=== PATIENT | female | born 1990 | race Caucasian/White ===

== ENCOUNTER 2021-05-26 13:25 | Outpatient (REF) | payer MEDICAID, SELFPAY ==
[2021-05-28 04:51] LABS: CT PCR NOT DETECTED (Not Detect.); NG PCR NOT DETECTED (Not Detect.)
[2021-05-28 09:40] LABS: BV Int Neg Control Negative (Negative); BV Int Pos Control Positive (Positive)
[2021-06-02 18:46] LABS: HPV mRNA E6/E7 rflx Not Detected (Not Detected)
== END 2021-05-26 13:26 | disposition home or self-care (01) ==
LOC: HO.LAB 13:25
PROVIDERS: PCP Internal Medicine; Visit Provider Advanced Practice Midwife
DX: Z01.419 Encounter for gynecological examination (general) (routine) without abnormal findings (principal); Z11.51 Encounter for screening for human papillomavirus (HPV); Z20.2 Contact with and (suspected) exposure to infections with a predominantly sexual mode of transmission; Z87.42 Personal history of other diseases of the female genital tract
CPT/HCPCS: 87480; 87491; 87510; 87591; 87624; 87660; 88142

== ENCOUNTER 2021-10-28 09:19 | Outpatient (REF) | payer MEDICAID, SELFPAY | END 2021-10-28 09:20 | disposition home or self-care (01) | LOC: HO.LAB 09:19 | PROVIDERS: PCP Internal Medicine; Visit Provider Advanced Practice Midwife | DX: R87.615 Unsatisfactory cytologic smear of cervix (principal); Z87.42 Personal history of other diseases of the female genital tract | CPT/HCPCS: 88142; 99212 ==

== ENCOUNTER 2022-12-15 11:10 | Outpatient (REF) | payer MEDICAID, SELFPAY ==
[2022-12-15 14:27] LABS: MANUAL DIFF FLAG NO
[2022-12-15 14:41] LABS: Basophils Percent Auto 0.6 % (0-2); Eosinophils Absolute Auto 0.2 X10*3/uL (0.0-0.4); Eosinophils Percent Auto 2.2 % (0-4); Hematocrit 42.1 % (37.0-47.0); Hemoglobin 13.4 g/dl (12.0-16.0); Imm Gran Abs Auto 0.02 X10*3/uL (0.00-0.03); Imm Gran Pct Auto 0.3 % (0.0-0.4); Lymphocytes Percent Auto 27.5 % (20-40); Mean Corpuscular HGB Conc 31.8 g/dl (31.0-35.0); Mean Corpuscular Hemoglobin 29.2 pg (27.0-33.0); Mean Corpuscular Volume 91.7 fL (80.0-98.0); Mean Platelet Volume 11.4 fL (9.4-12.3); Monocytes Absolute Auto 0.5 X10*3/uL (0.1-1.2); Monocytes Percent Auto 6.8 % (2-11); Neutrophils Absolute Auto 4.5 x10*3/uL (2.0-8.3); Neutrophils Percent Auto 62.6 % (45-73); Platelet Count 369 X10*3/uL (160-400); Red Blood Count 4.59 X10*6/uL (4.20-5.50); Red Cell Distribution Width 11.9 % (11.0-16.0); White Blood Count 7.2 X10*3/uL (4.8-10.8)
[2022-12-15 15:29] LABS: Estimated Average Glucose 91 mg/dL; Hemoglobin A1c % 4.8 %
[2022-12-16 02:13] LABS: TSH reflex Free T4 1.89 uIU/mL (0.32-4.0)
[2022-12-16 02:15] LABS: Anion Gap 12 (12-20)
[2022-12-16 02:18] LABS: Blood Urea Nitrogen 7 mg/dL (9-16); Calcium 9.4 mg/dL (8.4-10.2); Carbon Dioxide 27 mmol/L (22-29); Chloride 105 mmol/L (96-108); Estimated Glomerular Filt Rate > 60; Glucose Random 86 mg/dL (60-115); Potassium 3.8 mmol/L (3.3-5.1); Sodium 140 mmol/L (135-145)
== END 2022-12-15 11:11 | disposition home or self-care (01) ==
LOC: HO.CHCLDS 11:10
PROVIDERS: Visit Provider General Practice
DX: F41.9 Anxiety disorder, unspecified (principal); G47.00 Insomnia, unspecified
CPT/HCPCS: 36415; 80048; 83036; 84443; 85025

== ENCOUNTER 2024-02-06 15:35 | Outpatient (REF) | payer MEDICAID, SELFPAY ==
[2024-02-06 18:30] LABS: Influenza A PCR NEGATIVE (Negative); Influenza B PCR NEGATIVE (Negative); Resp Syncy Virus RNA Qual PCR NEGATIVE (Negative); SARS COV2 PCR INHOUSE NEGATIVE (Negative)
== END 2024-02-06 15:36 | disposition home or self-care (01) ==
LOC: HO.CHCLNP 15:35
PROVIDERS: Visit Provider Family Medicine
DX: J06.9 Acute upper respiratory infection, unspecified (principal)
CPT/HCPCS: 0241U

== ENCOUNTER 2024-03-06 14:26 | Outpatient (REF) | payer MEDICAID, SELFPAY ==
[2024-03-06 17:57] LABS: MANUAL DIFF FLAG NO
[2024-03-06 18:16] LABS: Basophils Absolute Auto 0.1 X10*3/uL (0.0-0.2); Basophils Percent Auto 0.7 % (0-2); Eosinophils Absolute Auto 0.3 X10*3/uL (0.0-0.4); Eosinophils Percent Auto 2.5 % (0-4); Hemoglobin 12.4 g/dl (12.0-16.0); Imm Gran Abs Auto 0.04 X10*3/uL (0.00-0.03); Imm Gran Pct Auto 0.4 % (0.0-0.4); Lymphocytes Absolute Auto 2.9 X10*3/uL (1.2-4.9); Lymphocytes Percent Auto 28.6 % (20-40); Mean Corpuscular HGB Conc 33.5 g/dl (31.0-35.0); Mean Corpuscular Volume 89.6 fL (80.0-98.0); Mean Platelet Volume 11.2 fL (9.4-12.3); Monocytes Absolute Auto 0.6 X10*3/uL (0.1-1.2); Monocytes Percent Auto 5.7 % (2-11); Neutrophils Absolute Auto 6.3 x10*3/uL (2.0-8.3); Neutrophils Percent Auto 62.1 % (45-73); Platelet Count 357 X10*3/uL (160-400); Red Blood Count 4.13 X10*6/uL (4.20-5.50); White Blood Count 10.2 X10*3/uL (4.8-10.8)
[2024-03-06 18:33] LABS: Iron 65 mcg/dL (30-160); Percent Iron Saturation 23 % (15-50); Total Iron Binding Capacity 287 mcg/dL (228-428); Unsaturated Iron Binding 222 ug/dL
[2024-03-06 18:40] LABS: TSH reflex Free T4 1.67 uIU/mL (0.32-4.0)
== END 2024-03-06 14:27 | disposition home or self-care (01) ==
LOC: HO.CHCLDS 14:26
PROVIDERS: Visit Provider Internal Medicine
DX: R53.83 Other fatigue (principal)
CPT/HCPCS: 36415; 83540; 84443; 85025

== ENCOUNTER 2024-06-20 08:37 | Outpatient (AMB) | payer MEDICAID, SELFPAY ==
[2024-06-20 08:40] VITALS: BP 126/74; PULSE 94; O2SAT 98; BMI 32.1
--- NOTE | 2024-06-20 08:40 | A.OFFVIS_ITS ---
Vital Signs 06/20/24 08:40 Height 4 ft 11 in Weight 159 lb 2.78 oz BMI 32.1 BP 126/74 Blood Pressure Location Rt radial Position Sitting Pulse 94 Pulse Source Pulse Oximeter Pulse Oximetry (%) 98 Oxygen Delivery Method Room Air Intake Visit Reasons: Rectal Bleeding Intake Note: NEW PATIENT Reason; Rectal bleeding. Hx of hemorrhoids. Prior hx of colo/egd? N Concerns/Questions? Pt reports having rectal discomfort, pt has no prior hx of hemorrhoids but believes that it could possibly be related. Pt denies any other concerns at this time, BMs normal. Allergies aspirin [ASPIRIN] Allergy (Unknown, Verified 06/20/24 08:40) SWELLING, swells up HPI HPI Rectal Bleeding: Details: 34 years old female with no significant past medical history is here today for initial consultation. Patient was sent by her PCP for evaluating her ongoing symptoms. Patient reports rectal pain. Episode of rectal bleed back in February. Normal H&H. Patient reports occasional pain with bowel movements. Patient states that she feels like she has something around her rectum that is making her feel uncomfortable. Very sensitive area. Patient was using stool softeners, however she was having no results. Now taking senna every other day and she is moving her bowels. Bowels soft, brown. Patient reports that she is not constipated. Trying to eat fiber. Patient reports maternal aunt diagnosed with colorectal cancer in her 60s. Patient denies melena, unintentional weight loss or ribbon like stools. Patient reports occasional left lower quadrant pain specially when she is constipated. Pain better after bowel movement. [facility] Medical History Single delivery by Gall bladder stones Surgical History Hx of cholecystectomy (~2009) History of bilateral tubal ligation Family History Father Heart disease Diabetes Mother Diabetes Social History Alcohol intake: never Patient Tobacco Use Status: Never used Tobacco Gender identity: Female Female Reproductive History Menstrual Age of Menarche: 11 Review of Systems Const Denies weight gain and Denies weight loss ENT Reports no additional complaints, Denies dysphagia and Denies odynophagia Card Reports no additional complaints Resp Reports no additional complaints GI Denies abdominal pain, Denies belching, Denies melena, Denies bloating, Denies change in bowel habits, Reports constipation (Occasional), Denies dysphagia, Denies excessive flatus, Denies dyspepsia, Denies heartburn, Denies diarrhea, Denies loose stools, Denies nausea, Denies odynophagia, Denies vomiting and Reports other (Rectal pain with bowel movements) Reports no additional complaints Musc Reports no additional complaints Neuro Reports no additional complaints Psych Reports no additional complaints Endo Reports no additional complaints Physical Exam Vital Signs: Last Vital Signs Pulse 94 06/20/24 08:40 BP 126/74 06/20/24 08:40 Pulse Ox 98 06/20/24 08:40 Oxygen Delivery Method Room Air 06/20/24 08:40 BMI result Body Mass Index 32.1 Const General: healthy appearing and no acute distress Nutritional Appearance: obese Orientation/consciousness: patient oriented x3 Resp Effort & Inspection: normal respiratory effort, able to speak in complete sentences, no tracheal deviation and symmetric chest movement Auscultation: clear to auscultation bilaterally Cardio Rate: regular rate GI Inspection: Yes normal to inspection, No distended and Yes obesity Palpation (GI): Soft to palpation, not firm, nontender and No hepatosplenomegaly present Auscultation: normal bowel sounds Rectal Exam - Female: External hemorrhoid(s) present and other (Possible internal hemorrhoid felt) General: Yes no CVA tenderness Back/Spine/Pelvis Back: no CVA tenderness Skin General skin exam: elasticity normal, turgor normal and dry skin Neuro General: patient oriented x3 Psych Appearance: grossly normal Mental Status: mental status grossly normal Assessment & Plan Assessment & Plan (1) Rectal pain: Code(s): K62.89 - Other specified diseases of anus and rectum (2) Rectal bleed: Code(s): K62.5 - Hemorrhage of anus and rectum (3) LLQ abdominal pain: Code(s): R10.32 - Left lower quadrant pain (4) External hemorrhoid: Code(s): K64.4 - Residual hemorrhoidal skin tags Plan Patient will take senna, mild constipation reported. Increase fluid intake and activity to promote better bowel motility. On exam external hemorrhoids noted without bleeding. Script for Proctosol send. Sitz baths with Epsom salts recommended. Follow-up in 2 months to discuss going for colonoscopy. Message sent to surgical schedulers to book procedure for her. Patient is agreeable to this plan and verbalizes understanding of instructions. She was given the opportunity to ask questions and all questions answered. Thank you for allowing me to participate in her care Medications: New hydrocortisone 2.5% (Proctosol HC) 1 appl MA BID-QID PRN 30 grams 2RF hemorrhoids K64.9 - Unspecified hemorrhoids sennosides (Natural Senna Laxative) 8.6 mg PO BEDTIME 90 tabs 3RF constipation K59.00 - Constipation, unspecified Coding Level of Care Code New Pt Level 3 (05152) Diagnoses Rectal pain K62.89 Rectal bleed K62.5 LLQ abdominal pain R10.32 External hemorrhoid K64.4 Time Spent (min) 40 Comment 30 minutes spent with patient and additional 10 minutes spent reviewing her records
--- OUTSIDE RECORDS SUMMARY | 2024-06-20 08:54 | XMS_ITS | Encounter Summary ---
Author Organization [employer] Address [address] [facility] 7t [place] [address] Care Team Providers Care Technology Trainer Name Role Phone Yuri Colon MD Primary Care Prov ider Encounter Details Date Type Department Care Team ([facility] st Contact Info) Description 06/01/2024 Telephone [facility] MED & PEDS [address] [place], [place] [id number] Yuri Colon MD [address] [place] [address] Social History Tobacco Use Types Packs/Day Years Used Date Smoking Tobacco: Never Smokeless Tobacco: Never Alcohol Use Standard Drinks/Week Comments Never 0 (1 standard drink = 0.6 oz pur e alcohol) Depression Answer Date Recorded Patient Health Questionnaire-9 Score 0 08/05/2023 Patient Health Questionnaire-9 Score 0 08/05/2023 Last PHQ-9: Questionnaire Data Not on file 0 08/05/2023 Housing Stability Answer Date Recorded What is your housing situation today? I have silvio gonzalez 11/24/[address] you li ve. Do you have problems with any of the following? None of the above 11/24/2023 Food Insecurity Answer Date Recorded Within the past 12 months, y ou worried that your food would run out before you got money to buy more: Never True 11/24/2023 Within the past 12 months,th e food you bought just didn't last and you didn't have enough money to get more: Never True Transportation Answer Date Recorded In the past 12 months, has l ack of transportation kept you from medical appts, meetings, work or from getting things needed for daily living? No 11/24/2023 Utilities Answer Date Recorded In the past 12 months, has t he electric, gas, oil or water company threatened to shut off services in your home? No 11/24/2023 Depression Answer Date Recorded Patient Health Questionnaire-2 Score 3 08/05/2023 Internet Access Answer Date Recorded Internet Access Q1 Yes 01/30/2024 Internet Access Q2 Not on file 01/30/2024 Comments Unknown Sex and Gender Information Value Date Recorded Sex Assigned at Female 03/29/2022 10:14 AM EDT Legal Sex Female 10:14 AM EDT Gender Identity Female 03/29/2022 10:14 AM EDT Sexual Orientation Straight 03/29/2022 10 :14 AM EDT documented as of this encounter Miscellaneous Notes * Telephone Encounter - Belen Perez MA - 06/01/2024 2:43 PM EST Called pt to schedule [place] appt with Dr. Powell in June. Pt didn't answer, lvm to call officeback. documented in this encounter Plan of Treatment Upcoming Encounters Date Type Department Care Team (Late st Contact Info) Description 07/05/2024 1:00 PM EST Office Visit [facility] MED & PEDS [address] [place] [address] Yuri Colon MD [address] [place] [address] documented as of this encounter Visit Diagnoses Not on filedocumented in this encounter Additional Health Concerns Assessment Noted Time PHQ-9 Depression Total Score: 0 08/05/19 24 11:18 AM EST documented as of this encounter Care Teams Technology Trainer Relationship Specialty Start Date End Date Yuri Colon MD [address] [place] [address] PCP - General Internal Medicine 03/05/19 documented as of this encounter
--- OUTSIDE RECORDS SUMMARY | 2024-06-20 08:54 | XMS_ITS | Clinical Summary ---
Author Organization [facility] Address [address] [place] [address] Care Team Providers Care Fitter'S Assistant Name Role Phone Unavailable Primary Care Provider Unavailabl e Allergies Active Allergy Reactions Criticality Noted Date Comments Aspirin Hives 07/01/2020 Immunizations Name Administration Dates Next Due Covid-19 (Pfizer) Dilution Required 08/06/2020,0 07/01/2020 Social History Tobacco Use Types Packs/Day Years Used Date Smoking Tobacco: Never Assessed Sex and Gender Information Value Date Recorded Sex Assigned at Female 07/01/2020 1:21 PM EST Gender Identity Not on file Sexual Orientation Not on file Job Start Date Occupation Industry Not on file Not on file Not on file Plan of Treatment Health Maintenance Due Date Last Done Comments Hepatitis B Vaccines (1 of 3 - 3-dose series) 1989 Hepatitis C Screening 1989 Depression Screening 2001 Preventative Health Evaluation 2007 DTap / Tdap / Td (1 - Tdap) 2008 Cervical Cancer Screening (Pap Smear) 2010 COVID-19 Vaccine (2023-2 5 season) 2024 08/06/2020, 07/01/2020 Influenza Vaccine (#1) 2024 Pneumococcal Vaccine Aged Out No long er eligible based on patient's age to complete this topic RSV Ped < 20 months Aged Out No longe r eligible based on patient's age to complete this topic Suzi Perry Personal/Family Self 1990 ([place]) [address] [place] [address] [place] [phone]
--- OUTSIDE RECORDS SUMMARY | 2024-06-20 08:54 | XMS_ITS | Clinical Summary ---
Author Organization [employer] Address [address] [place] [address] 7[address] [place] [address] Care Team Providers Care Validation Architect Name Role Phone Yuri Colon MD Primary Care Prov ider Allergies Active Allergy Reactions Criticality Noted Date Comments Aspirin Hives 05/26/2010 Medications QUEtiapine (SEROquel) 50 MG tablet TAKE 1 TABLET BY MOUTH EVERYDAY AT BEDTIME 90 tablet 1 02/28/2024 Active omeprazole (PriLOSEC) [address] capsule Take 1 capsule (20 mg) by mouth before breakfast. 90 capsule 3 03/01/2024 Active hydrOXYzine HCl (Atarax) 25 MG tablet Take 1 tablet (25 mg) by mouth if needed in the morning, at noon, and at bedtime for anxiety. 90 tablet 3 03/27/2024 07/25/19 25 Active Active Problems Problem Noted Date Diagnosed Date Upper respiratory tract infection 02/06/2024 Assessment & Plan (02/06/2024 11:39 AM EDT): Negative for Covid, Flu, and RSV. Prescribing Pseudoephedrine Er for Sx. Relevant Medications Pseudoephedrine ER (Sudafed Sinus Congestion 12 HR) 120 MG 12 hr tablet Dysuria 02/06/2024 Assessment & Plan (02/07/2024 10:18 AM EDT): Urinalysis showed hematuria and UTI. Prescribing Macrobid and Pyridium for Sx. Relevant Medications Nitrofurantoin, Macrocrystal-monohydrate (Macrobid) 100 mg capsule Phenazopyridine (Pyridium) 200 mg tablet Recommend patient to do UA order by PCP when she is not symptomatic to assess if she had microscopic hematuria Bilateral impacted cerumen 02/06/2024 Assessment & Plan (02/06/2024 11:40 AM EDT): Prescribing Debrox for Sx. Relevant Medication Carbamide Peroxide (Debrox) 6.5% otic solution Other fatigue 09/15/2023 Assessment & Plan (09/15/2023 12:25 PM EDT): Will order cbc and tsh, Anxiety and depression 01/13/2023 Assessment & Plan (03/27/2024 9:08 AM EDT): On seroquel with good results, taking hydroxyzine as needed, no changes will be made Assessment & Plan (03/01/2024 12:13 PM EDT): Will decrease quetiapine, call back if symptoms worsening Assessment & Plan (11/25/2023 3:37 PM EDT): Will increase quetiapine, no suicidal/homicidal ideas, follow up in 6 weeks Phone number for therapist was provided Assessment & Plan (09/15/2023 12:24 PM EDT): Symptoms improved, continue hydroxyzine as needed, no suicidal/homicidal ideas Assessment & Plan (08/17/2023 9:41 AM EDT): No sucidal/homicidal ideas, will refer to , and will provide hydroxyzine as needed, follow up in [address] [facility] Assessment & Plan (06/03/2023 10:01 AM EST): Symptoms improved and controlled with seroquel, will leave current therapy, no suicidal/homicidal ideas Assessment & Plan (01/13/2023 3:11 PM EDT): Patient was started on lexapro, refers her symptoms have improved but expirenecing episodes of mood swings, with anger, she probably has bipolar disorder, she refers she used to take abilify. Will discontinue lexapro and will start on seroquel Asymptomatic microscopic hematuria 01/13/2023 Assessment & Plan (03/27/2024 9:07 AM EDT): U/a not done, told to perform it 2 weeks after menstrual period, she has remained asymptomatic Assessment & Plan (03/01/2024 12:14 PM EDT): New labs ordered to reevaluate hematuria Assessment & Plan (11/25/2023 3:38 PM EDT): New u/a was ordered, will follow up results Assessment & Plan (06/03/2023 10:02 AM EST): U/a not done, she will get it this week for follow up Assessment & Plan (01/13/2023 3:32 PM EDT): Will order a new u/a for further evaluation Migraine without aura and wi thout status migrainosus, not intractable 06/29/2022 Assessment & Plan (06/29/2022 3:24 PM EST): Patient complains of a throbing headache for the past 4-5 days, no blurry vision/upper/lower extremity weakness. Will provide sumatriptan/naproxen, discussed lifestyle changes including adequate sleep and diet. Call back if not improving Encounters Date Type Department Care Team Description 06/01/2024 Telephone [facility] MED & PEDS [address] [place] [address] Yuri Colon MD 03/27/2024 8:45 AM EDT Telemedicine [facility] MED & PEDS [address] [place] [address] Yuri Colon MD Asymptomatic microscopic hematuria (Primary Dx); Anxiety and depression 03/27/2024 Travel from Last 3 Months Immunizations Name Administration Dates Next Due HPV, Quadrivalent 01/31/2007,12/02/2006 Influenza injectable quadriv alent IIV4 with preservative 03/05/2019 Social History Tobacco Use Types Packs/Day Years Used Date Smoking Tobacco: Never Smokeless Tobacco: Never Tobacco Cessation:Counseling Given: Not Answered Alcohol Use Standard Drinks/Week Comments Never 0 [...] Orientation Straight 03/29/2022 10 :14 AM EDT Last Filed Vital Signs Vital Sign Reading Time Taken Comments Blood Pressure 120/71 03/06/2024 1:22 PM EDT Pulse 74 03/06/2024 1:22 PM EDT Temperature 36.7 ??C (98.1 ??F) 03/06/2024 1:22 PM ED T Respiratory Rate 16 03/06/2024 1:22 PM EDT Oxygen Saturation 99% 03/06/2024 1:22 PM EDT Inhaled Oxygen Concentration - - Weight 68.6 kg (151 lb 3.2 oz) 03/06/2024 1:22 P M EDT Height 152.4 cm (5') 03/06/2024 1:22 PM EDT Body Mass Index 29.53 03/06/2024 1:22 PM EDT Plan of Treatment Upcoming Encounters Date Type Department Care Team (Late st Contact Info) Description 07/05/2024 1:00 PM EST Office Visit [facility] MED & PEDS [address] [place] [address] Yuri Colon MD [address] [place] [address] Health Maintenance Due Date Last Done Comments HIV Screening 1989 Alcohol/Substance Use Screening 2001 Family Planning (PISQ) 2004 Hepatitis C Screening 2007 HPV Vaccines (3 - 3-dose series) 06/04/2007 01/31/2007, 12/02/2006 DTaP/Tdap/Td Vaccines (1 - Tdap) 2008 Hepatitis B Vaccines (1 of 3 - 19+ 3-dose series) 2008 Pap Smear 2010 COVID-19 Vaccine (3 - 2023-2 5 season) 2024 08/06/2020, 07/01/2020 Influenza Vaccine (#1) 2024 03/05/2019 Depression Screening 08/04/2024 08/05/2023, 08/05/2023 SDOH Screening 11/23/2024 11/24/2023 Tobacco Screening 03/06/2025 03/06/2024 Cervical Cancer Screening 05/26/2026 HPV/Cotest 05/26/2026 05/26/2021, 05/26/2021 Zoster Vaccines (1 of 2) 2039 RSV Patients and Patients Aged 60 years or older (1 - 1-dose 75+ series) 2064 HIB Vaccines Aged Out No longer eligi ble based on patient's age to complete this topic Hepatitis A Vaccines Aged Out No long er eligible based on patient's age to complete this topic IPV Vaccines Aged Out No longer eligi ble based on patient's age to complete this topic Meningococcal Vaccine Aged Out No christel nabila eligible based on patient's age to complete this topic Pneumococcal Vaccine: Pediatrics (0 to 5 Years) and At-Risk Patients (6 to 64 Years) Aged Out No longer eligible b ased on patient's age to complete this topic RSV under 20 months Aged Out No longe r eligible based on patient's age to complete this topic Rotavirus Vaccines Aged Out No longer eligible based on patient's age to complete this topic Procedures Procedure Name Priority Date/Time Associated Diagnosis Comments ZZZ HISTORICAL HPV E6/E7 RFLX ESCOBAR 16 18/45 Routine 05/26/2021 2:16 PM EST from Last 3 Months or Most Recently Relevant to Health Maintenance Results * HPV E6/E7 RFLX ESCOBAR 16 18/45 (05/26/2021 2:16 PM EST) HPV 16 RNA TNP [facility] HPV 18/45 RNA TNP [facility] HPV E6 E7 ADD TNP [facility] HPV mRNA E6/E7 rflx Not Detected Not Detected [facility] Comment: Methodology: Flap Lining Binder-Mediated Amplification This assay detects E6/E7 viral messenger RNA (mRNA) from 14 high-risk HPV types (16,18,31,33,35,39,45,51,52,56,58,59,66,68). The analytical performance characteristics of this assay have been determined by [employer]. The modifications have not been cleared or approved by the FDA. This assay has been validated pursuant to the CLIA regulations and is used for clinical purposes. For additional information, please refer to http://education.[employer].Epuramat/faq/NTA579w3 (This link if provided for information/ educational purposes only.) THIS TEST WAS PERFORMED AT: [facility] [address] [place] [address],[address] [place], [place] ??[phone] KASSI GONZALES MD 05/26/2021 2:16 PM EST us Charlotte Carias HISTORICAL/NON ORDERABLE LABS Fi nal Result [facility] [address] from Last 3 Months or Most Recently Relevant to Health Maintenance [facility] Care Teams Validation Architect Relationship Specialty Start Date End Date Yuri Colon MD [address] [place] [address] PCP - General Internal Medicine 03/05/19
--- OUTSIDE RECORDS SUMMARY | 2024-06-20 08:54 | XMS_ITS | Encounter Summary ---
Author Organization [employer] Address [address] [facility] [address]t [place] [address] Care Team Providers Care Automotive Service Manager Name Role Phone Yuri Colon MD Primary Care Prov ider Reason for Visit * Reason Comments Med Refill Encounter Details Date Type Department Care Team ([facility] st Contact Info) Description 04/30/[address] [facility] MED & PEDS [address] [place] [address] Yuri Colon MD [address] [place] [address] Social History Tobacco Use Types Packs/Day Years Used Date Smoking Tobacco: Never Smokeless Tobacco: Never Alcohol Use Standard Drinks/Week Comments Never 0 (1 standard drink = 0.6 oz pur e alcohol) Housing Stability Answer Date Recorded What is your housing situation today? I have silvio gonzalez 03/28/[address] you li ve. Do you have problems with any of the following? None of the above 03/28/2023 Food Insecurity Answer Date Recorded Within the past 12 months, y ou worried that your food would run out before you got money to buy more: Never True 03/28/2023 Within the past 12 months,th e food you bought just didn't last and you didn't have enough money to get more: Never True Transportation Answer Date Recorded In the past 12 months, has l ack of transportation kept you from medical appts, meetings, work or from getting things needed for daily living? No 03/28/2023 Utilities Answer Date Recorded In the past 12 months, has t he electric, gas, oil or water [employer] threatened to shut off services in your home? No 03/28/2023 Depression Answer Date Recorded Patient Health Questionnaire-2 Score 0 06/29/2022 Comments Unknown Sex and Gender Information Value Date Recorded Sex Assigned at Female 03/29/2022 10:14 AM EDT Legal Sex Female 10:14 AM EDT Gender Identity Female 03/29/2022 10:14 AM EDT Sexual Orientation Straight 03/29/2022 10 :14 AM EDT documented as of this encounter Plan of Treatment Upcoming Encounters Date Type Department Care Team (Late st Contact Info) Description 07/05/2024 1:00 PM EST Office Visit [facility] MED [facility] PEDS [address] [place] [address] Yuri Colon MD [address] [place] [address] documented as of this encounter Visit Diagnoses Not on filedocumented in this encounter Care Teams Automotive Service Manager Relationship Specialty Start Date End Date Yuri Colon MD [address] [place] [address] PCP - General Internal Medicine 03/05/19 documented as of this encounter
--- OUTSIDE RECORDS SUMMARY | 2024-06-20 08:54 | XMS_ITS | Encounter Summary ---
Author Organization [employer] Address [address] [facility] [address]t [place] [address] Care Team Providers Care Realtime Court Reporter Name Role Phone Yuri Colon MD Primary Care Prov ider Reason for Visit * Reason Onset Date Comments Med Refill 05/02/2023 Encounter Details Date Type Department Care Team (Late st Contact Info) Description 05/02/[address] [facility] MED & PEDS [address] [place] [address] Yuri Colon MD [address] [place] [address] Social History Tobacco Use Types Packs/Day Years [...] Description 07/05/2024 1:00 PM EST Office Visit [facility] MED & PEDS [address] [place] [address] Yuri Colon MD [address] [place] [address] documented as of this encounter Visit Diagnoses Not on filedocumented in this encounter Care Teams Realtime Court Reporter Relationship Specialty Start Date End Date Yuri Colon MD [address] [place] [address] PCP - General Internal Medicine 03/05/19 documented as of this encounter
== END 2024-06-20 11:01 | disposition home or self-care (01) ==
PROVIDERS: PCP Internal Medicine; Visit Provider Nurse Practitioner Family
DX: K62.89 Other specified diseases of anus and rectum (principal); K62.5 Hemorrhage of anus and rectum; R10.32 Left lower quadrant pain; K64.4 Residual hemorrhoidal skin tags
CPT/HCPCS: 99203

== ENCOUNTER → 2024-06-20 08:37 | Outpatient (BNVA) | payer MEDICAID, SELFPAY | PROVIDERS: PCP Internal Medicine; Visit Provider Nurse Practitioner Family | DX: K62.89 Other specified diseases of anus and rectum (principal); K62.5 Hemorrhage of anus and rectum; K64.9 Unspecified hemorrhoids; K64.4 Residual hemorrhoidal skin tags; K59.00 Constipation, unspecified; R10.32 Left lower quadrant pain | CPT/HCPCS: 99212 ==

== ENCOUNTER 2024-08-20 08:15 | Outpatient (AMB) | payer SELFPAY ==
--- NOTE | 2024-08-20 08:31 | A.OFFVIS_ITS ---
Vital Signs 08/20/24 08:35 Height 4 ft 11 in Weight 155 lb BMI 31.3 BP 92/52 L Blood Pressure Location Rt brachial Position Sitting Pulse 80 Pulse Source Pulse Oximeter Pulse Oximetry (%) 99 Oxygen Delivery Method Room Air Intake Visit Reasons: 2 mo rectal pain and discuss colo Intake Note: ESTABLISHED PATIENT for mgmt of constipation, rectal bleeding. Discuss colo Chief Complaint; C/O persistent chronic condition w/o change in presentation since prior visit. Still experiencing hemorrhoids w/ active bleeding and discomfort. Measuring Machine Operator Required: No Accompanied by: Self / Same As Patient Allergies aspirin [ASPIRIN] Allergy (Unknown, Verified 08/20/24 08:34) SWELLING, swells up HPI HPI 2 mo rectal pain and discuss colo: Details: LAST VISIT Rectal pain Rectal bleed LLQ abdominal pain External hemorrhoid Plan Patient will take senna, mild constipation reported. Increase fluid intake and activity to promote better bowel motility. On exam external hemorrhoids noted without bleeding. Script for Proctosol send. Sitz baths with Epsom salts recommended. Follow-up in 2 months to discuss going for colonoscopy. Message sent to surgical schedulers to book procedure for her. Patient is agreeable to this plan and verbalizes understanding of instructions. She was given the opportunity to ask questions and all questions answered. ? Thank you for allowing me to participate in her care Medications New hydrocortisone 2.5% (Proctosol HC) 1 appl TX BID-QID PRN 30 grams 2RF hemorrhoids K64.9 sennosides (Natural Senna Laxative) 8.6 mg PO BEDTIME 90 tabs 3RF constipation K59.00 TODAY'S VISIT Patient is here today for follow-up and to discuss going for colonoscopy. Patient reports that she continues to have occasional irritation her rectum and occasional blood when having a bowel movement. Patient reports worse when she is constipated. Patient is using senna in his moving her bowels better. Patient reports that past we can she had greasy food and end up with severe epigastric pain, nausea and vomiting. Patient reports having diarrhea as well. Patient reports that acid reflux in the epigastric pain postprandially has been an issue for her in the past couple months. PCP started her on omeprazole. Patient was taking as needed, started again today's ago. Patient reports that sometimes no matter what she eats she feels acid reflux, severe burning going all the way up to her throat. [facility] Medical History Single delivery by Gall bladder stones Surgical History Hx of cholecystectomy (~2009) History of bilateral tubal ligation Family History Father Heart disease Diabetes Mother Diabetes Social History Alcohol intake: never Patient Tobacco Use Status: Never used Tobacco Gender identity: Female Female Reproductive History Menstrual Age of Menarche: 11 Review of Systems Const Denies weight gain and Denies weight loss ENT Reports no additional complaints, Denies dysphagia and Denies odynophagia Card Reports no additional complaints Resp Reports no additional complaints GI Reports abdominal pain (Epigastric), Denies belching, Denies melena, Denies bloating, Reports hematochezia (Occasionally), Denies change in bowel habits, Reports constipation (Occasional), Denies dysphagia, Denies excessive flatus, Denies dyspepsia, Reports heartburn, Denies diarrhea, Denies loose stools, Denies nausea, Denies odynophagia, Denies vomiting and Reports other (Rectal pain with bowel movements) Reports no additional complaints Musc Reports no additional complaints Neuro Reports no additional complaints Psych Reports no additional complaints Endo Reports no additional complaints Physical Exam Const General: healthy appearing and no acute distress Nutritional Appearance: obese Orientation/consciousness: patient oriented x3 Resp Effort & Inspection: normal respiratory effort, able to speak in complete sentences, no tracheal deviation and symmetric chest movement Auscultation: clear to auscultation bilaterally Cardio Rate: regular rate GI Inspection: Yes normal to inspection, No distended and Yes obesity Palpation (GI): Soft to palpation, not firm, nontender and No hepatosplenomegaly present Auscultation: normal bowel sounds Rectal Exam - Female: External hemorrhoid(s) present and other (Possible internal hemorrhoid felt) General: Yes no CVA tenderness Back/Spine/Pelvis Back: no CVA tenderness Skin General skin exam: elasticity normal, turgor normal and dry skin Neuro General: patient oriented x3 Psych Appearance: grossly normal Mental Status: mental status grossly normal Assessment & Plan Assessment & Plan (1) Rectal pain: Code(s): K62.89 - Other specified diseases of anus and rectum (2) Rectal bleed: Code(s): K62.5 - Hemorrhage of anus and rectum (3) LLQ abdominal pain: Code(s): R10.32 - Left lower quadrant pain (4) External hemorrhoid: Code(s): K64.4 - Residual hemorrhoidal skin tags (5) GERD (gastroesophageal reflux disease): Code(s): K21.9 - Gastro-esophageal reflux disease without esophagitis Qualifiers: Esophagitis presence: esophagitis presence not specified Qualified Code(s): K21.9 - Gastro-esophageal reflux disease without esophagitis (6) Postprandial epigastric pain: Code(s): R10.13 - Epigastric pain Plan Patient reports postprandial epigastric pain and acid reflux. Will send patient for upper endoscopy. Message sent to surgical schedulers to add procedure. Patient will continue taking omeprazole. Will send patient for upper GI series with barium swallow. Will check transglutaminase and lipase. Encouraged patient to avoid dietary triggers and late night snacking. GERD precautions and food elimination discussed with patient. List of food recommended as well as list of food to avoid given to patient. Patient will be sent for colonoscopy. Denies any issues with anesthesia in the past. No history of sleep apnea. Not on any anticoagulation medication. What to expect before during and after procedure discussed patient. Stressed the importance of good bowel prep and clear diet day before procedure. I will see patient after the procedure. She is agreeable to current plan of care and verbalizes understanding of instructions. She was given the opportunity to ask questions and all questions answered. Thank you for allowing me to participate in her care Orders: Orders Lipase Today R10.9 - Unspecified abdominal pain Transglutaminase IgA Today R10.9 - Unspecified abdominal pain FL upper GI w Ba Swallow Today K21.9 - Gastro-esophageal reflux disease without esophagitis Medications: New bisacodyl (Dulcolax (bisacodyl)) take 4 tabs at noon the day before your colonoscopy 20 mg (4 x 5 mg) PO ONCE 1 day 4 tabs 0RF Z12.11 - Encounter for screening for malignant neoplasm of colon polyethylene glycol 3350 (Miralax) As directed by gastroenterology department at [facility] 238 grams PO ONCE 238 grams 0RF Z12.11 - Encounter for screening for malignant neoplasm of colon Coding Level of Care Code Est Pt Level 4 (89046) Complex EM visit Add On G2211 Diagnoses Rectal pain K62.89 Rectal bleed K62.5 LLQ abdominal pain R10.32 External hemorrhoid K64.4 Gastroesophageal reflux disease, unspecified whether esophagitis present K21.9 Esophagitis presence: esophagitis presence not specified Postprandial epigastric pain R10.13 Time Spent (min) 35 Comment 25 minutes spent with patient and additional 10 minutes spent reviewing her records
[2024-08-20 08:35] VITALS: BP 92/52; PULSE 80; O2SAT 99; BMI 31.3
== END 2024-08-20 09:55 | disposition home or self-care (01) ==
LOC: HO.HGI 08:16
PROVIDERS: PCP Internal Medicine; Visit Provider Nurse Practitioner Family
DX: K62.89 Other specified diseases of anus and rectum (principal); K62.5 Hemorrhage of anus and rectum; R10.32 Left lower quadrant pain; K64.4 Residual hemorrhoidal skin tags; K21.9 Gastro-esophageal reflux disease without esophagitis; R10.13 Epigastric pain
CPT/HCPCS: 99214; G2211

== ENCOUNTER 2024-08-20 08:15 | Outpatient (REF) | payer SELFPAY ==
[2024-08-20 10:42] LABS: Lipase 36 U/L (8-78)
[2024-08-21 22:33] LABS: Transglutaminase IgA <1.0 U/mL
== END 2024-08-20 08:16 | disposition home or self-care (01) ==
LOC: HO.LAB 08:15
PROVIDERS: PCP Internal Medicine; Visit Provider Nurse Practitioner Family
DX: K62.89 Other specified diseases of anus and rectum (principal); K62.5 Hemorrhage of anus and rectum; R10.32 Left lower quadrant pain; K64.4 Residual hemorrhoidal skin tags; K21.9 Gastro-esophageal reflux disease without esophagitis; R10.13 Epigastric pain
CPT/HCPCS: 36415; 83690; 86364; 99212

== ENCOUNTER 2024-10-09 08:38 | Day surgery (SDC) | payer MEDICAID, SELFPAY ==
--- OUTSIDE RECORDS SUMMARY | 2024-09-03 10:18 | XMS_ITS | Encounter Summary ---
Author Organization [employer] Address [address] [facility] 7t [place] [address] Care Team Providers Care Design Engineer Agricultural Equipment Name Role Phone Yuri Colon MD Primary Care Prov ider Reason for Visit * Reason Comments Med Refill Encounter Details Date Type Department Care Team ([facility] st Contact Info) Description 09/02/2024 Refill [facility] MED [facility] PEDS [address] [place] [address] Yuri Colon MD [address] [place] [address] Social History Tobacco Use Types Packs/Day Years [...] Care Team (Late st Contact Info) Description 11/07/2024 9:15 AM EDT Office Visit [facility] MED & PEDS [address] [place] [address] Yuri Colon MD [address] [place] [address] documented as of this encounter Visit Diagnoses Not on filedocumented in this encounter Additional Health Concerns Assessment Noted Time PHQ-9 Depression Total Score: 0 08/05/19 24 11:18 AM EST documented as of this encounter Care Teams Design Engineer Agricultural Equipment Relationship Specialty Start Date End Date Yuri Colon MD [address] [place] [address] PCP - General Internal Medicine 03/05/19 documented as of this encounter
--- OUTSIDE RECORDS SUMMARY | 2024-09-03 10:18 | XMS_ITS | Encounter Summary ---
Author Organization [employer] Address [address] [facility] 7[address] [place] [address] Care Team Providers Care Embossing Tool Setter Name Role Phone Yuri Colon MD Primary Care Prov ider Reason for Visit * Reason Comments Med Refill Encounter Details Date Type Department Care Team ([facility] st Contact Info) Description 04/30/2023 Refill [facility] MED & PEDS [address] [place] [address] Yuri Colon MD [address] [place] [address] Social History Tobacco Use Types Packs/Day Years [...] t he electric, gas, oil or water [employer] threatened to shut off services in your [...] Description 11/07/2024 9:15 AM EDT Office Visit [facility] MED & PEDS [address] [place] [address] Yuri Colon MD [address] [place] [address] documented as of this encounter Visit Diagnoses Not on filedocumented in this encounter Care Teams Embossing Tool Setter Relationship Specialty Start Date End Date Yuri Colon MD [address] [place] [address] PCP - General Internal Medicine 03/05/19 documented as of this encounter
--- OUTSIDE RECORDS SUMMARY | 2024-09-03 10:18 | XMS_ITS | Encounter Summary ---
Author Organization [employer] Address [address] [facility] 7 [place] [address] Care Team Providers Care Corridor Redevelopment Manager Name Role Phone Yuri Colon MD Primary Care Prov ider Reason for Visit * Reason Onset Date Comments Med Refill 05/02/2023 Encounter Details Date Type Department Care Team (Late st Contact Info) Description 05/02/2023 Refill [facility] MED & PEDS [address] [place] [address] Yuri Colon MD [address] [place] [address] Social History Tobacco Use Types Packs/Day Years [...] Description 11/07/2024 9:15 AM EDT Office Visit [facility] MED & PEDS [address] [place] [address] Yuri Colon MD [address] [place] [address] documented as of this encounter Visit Diagnoses Not on filedocumented in this encounter Care Teams Corridor Redevelopment Manager Relationship Specialty Start Date End Date Yuri Colon MD [address] [place] [address] PCP - General Internal Medicine 03/05/19 documented as of this encounter
--- OUTSIDE RECORDS SUMMARY | 2024-09-03 10:18 | XMS_ITS | Clinical Summary ---
Author Organization [facility] Address [address] [place] [address] Care Team Providers Care Head Butler Name Role Phone Unavailable Primary Care Provider [...] this topic Suzi Perry Personal/Family Self 1990 ([place]) [address] [place] [address] [place] [phone]
--- OUTSIDE RECORDS SUMMARY | 2024-09-03 10:19 | XMS_ITS | Clinical Summary ---
Author Organization [employer] Address [address] [place] [address] 7t [place] [address] Care Team Providers Care Hot Dip Tinning Supervisor Name Role Phone Yuri Colon MD Primary [...] bedtime for anxiety. 90 tablet 3 03/27/2024 Active Active Problems Problem Noted Date Diagnosed [...] hydroxyzine as needed, [facility] Assessment & Plan (06/03/2023 10:01 AM EST): [...] Encounters Date Type Department Care Team Description 09/02/2024 Refill [facility] MED & PEDS [address] [place] [address] Yuri Colon MD 08/20/2024 Orders Only GENERIC EXTERNAL DATA DEPARTMENT Provider, Generic External Data 08/16/2024 Telephone [facility] [address] [place] [address] Yuri Colon MD No Show 08/10/2024 Population Health Risk Score [facility] (C[facility]) Department [address] [phone] Provider, Population Health Generic 08/09/2024 Patient Outreach [facility] [address] [place] [address] Yuri Colon MD Pre-visit Planning (SDOH was completed on 06/28/2024) 07/04/2024 Travel 06/28/2024 Patient Outreach [facility] [address] [place] [address] Yuri Colon MD Pre-visit Planning (SDOH negative, Tobacco screening negative.) from Last 3 Months Immunizations Name Administration [...] Description 11/07/2024 9:15 AM EDT Office Visit [facility] [address] [place] [address] Yuri Colon MD [address] [place] [address] Health Maintenance Due Date Last Done Comments [...] 2024 03/05/2019 Depression Screening 08/04/2024 08/05/2023, 08/05/2023 Tobacco Screening 03/06/2025 03/06/2024 SDOH Screening 06/28/2025 06/28/2024 Cervical Cancer Screening 05/26/2026 HPV/Cotest 05/26/2026 05/26/2021, [...] 5 Years) and At-Risk Patients (6 to 49) Years) Aged Out No longer eligible b ased on patient's age to complete this topic RSV under 20 months Aged Out No longe r eligible based on patient's age to complete this topic Rotavirus Vaccines Aged Out No longer eligible based on patient's age to complete this topic Procedures Procedure Name Priority Date/Time Associated Diagnosis Comments TISSUE TRANSGLUTAMINASE AB, IGA Routine 08/20/2024 9:14 AM EDT LIPASE Routine 08/20/2024 9:14 AM EDT AMB REFERRAL TO GASTROENTEROLOGY Routine 06/20/2024 Rectal bleed ZZZ HISTORICAL HPV E6/E7 RFLX ESCOBAR 16 18/45 Routine 05/26/2021 2:16 PM EST from Last 3 Months or Most Recently Relevant to Health Maintenance Results * Tissue Transglutaminase Antibody, IgA (08/20/2024 9:14 AM EDT) Transglutaminase IgA <1.0 U/mL [facility] Comment:Value Interpretation ----- <15.0 Antibody not detected> or = 15.0 Antibody detectedTHIS TEST WAS PERFORMED AT:[employer] [address] [id number] GONZALES MD 08/20/2024 9:14 AM EDT 08/20/2024 9:14 AM EDT Generic External Data Provider LAB BLOOD ORDERAB LES Final Result Performing Organization Address City/[facility]/ZIP Co de Phone Number [facility] [address] [place] [phone] * Lipase (08/20/2024 9:14 AM EDT) Pathologist [facility] Lipase 36 8 - 78 U/L [facility] 08/20/2024 9:14 AM EDT 08/20/2024 9:14 AM EDT Generic External Data Provider LAB BLOOD ORDERAB LES Final Result Performing Organization Address [facility] de Phone Number [facility] [address] [place] [phone] * HPV E6/E7 RFLX ESCOBAR 16 18/45 (05/26/2021 2:16 PM EST) Pathologist [facility] HPV 16 RNA [facility] HPV 18/45 RNA [facility] HPV E6 E7 ADD [facility] HPV mRNA E6/E7 rflx Not Detected Not Detected [facility] Comment: Methodology: Deportation Examiner-Mediated Amplification This assay detects E6/E7 viral messenger RNA (mRNA) from 14 high-risk HPV types (16,18,31,33,35,39,45,51,52,56,58,59,66,68). The analytical performance characteristics of this assay have been determined by [employer]. The modifications have not been cleared or approved by the FDA. This assay has been validated pursuant to the CLIA regulations and is used for clinical purposes. For additional information, please refer to http://education.Clicktree.Fugate.cl/faq/SYW953e7 (This link if provided for information/ educational purposes only.) THIS TEST WAS PERFORMED AT: [employer] [address] [facility] [address] [place], [place] ??[phone] KASSI GONZALES MD 05/26/2021 2:16 PM EST us [place] HISTORICAL/NON ORDERABLE LABS Fi nal Result [facility] [address] from Last 3 Months or Most Recently Relevant to Health Maintenance [facility] Care Teams Hot Dip Tinning Supervisor Relationship Specialty Start Date End Date Yuri Colon MD [address] [place] [address] PCP - General Internal Medicine 03/05/19
--- NOTE | 2024-10-08 14:09 | P.CONAN_ITS ---
Documented by User: Mary Lucas NP 10/08/24 14:09 HPI - Anesthesia Eval Consult details Narrative: 34yo F for Upper Endoscopy and Colonoscopy [facility] Active Problems Active Problems: All Active Problems Inadequate cervical cytology sample (Acute) Potential exposure to STD (Acute) Hx of abnormal cervical Pap smear (Acute) Well woman exam with routine gynecological exam (Acute) Past Medical History Medical History (Updated 10/09/24 @ 09:53 by Alta Kaye RN) Carpal tunnel syndrome of right wrist Carpal tunnel syndrome of left wrist Single delivery by Gall bladder stones Family History Family History Father Heart disease Diabetes Mother Diabetes Surgical History Surgical History Hx of cholecystectomy (~2009) History of bilateral tubal ligation Social History Social History Are you a primary child care cook to a significant other at home: No Do you presently have visiting nurse or other home services: No Alcohol intake: never Patient Tobacco Use Status: Never used Tobacco Gender identity: Female Meds Allergies Allergy/AdvReac Type Severity Reaction Status Date / Time aspirin [ASPIRIN] Allergy Unknown SWELLING, Verified 10/09/24 09:53 swells up Home Medications ?Medication ?Instructions ?Recorded ?Confirmed ?Last Taken ?Type hydroxyzine HCl 25 mg tablet 50 mg PO BEDTIME 06/20/24 10/09/24 Unknown History omeprazole 20 mg capsule,delayed 20 mg PO QAM 08/20/24 10/09/24 Unknown History release Assessment and Plan Assessment Anesthesia Assessment: Chart Reviewed Documented by User: Filiberto Grant MD 10/09/24 10:49 PMFSH Past Medical History Medical History (Updated 10/09/24 @ 09:53 by Alta Kaye RN) Carpal tunnel syndrome of right wrist Carpal tunnel syndrome of left wrist Single delivery by Gall bladder stones Patient : No Family History Family History Father Heart disease Diabetes Mother Diabetes Family history of problems with anesthesia: No Surgical History Surgical History Hx of cholecystectomy (~2009) History of bilateral tubal ligation History of Problems with Anesthesia: No Social History Social History Are you a primary child care cook to a significant other at home: No Do you presently have visiting nurse or other home services: No Alcohol intake: never Patient Tobacco Use Status: Never used Tobacco Gender identity: Female Meds Allergies Allergy/AdvReac Type Severity Reaction Status Date / Time aspirin [ASPIRIN] Allergy Unknown SWELLING, Verified 10/09/24 09:53 swells up Home Medications ?Medication ?Instructions ?Recorded ?Confirmed ?Last Taken ?Type hydroxyzine HCl 25 mg tablet 50 mg PO BEDTIME 06/20/24 10/09/24 Unknown History omeprazole 20 mg capsule,delayed 20 mg PO QAM 08/20/24 10/09/24 Unknown History release Exam Airway Mallampati Class: II TM Dist: <=3cm Neck ROM: Full Loose/Missing/Broken Teeth: No Heart: ok Lungs: ok Assessment and Plan Assessment Anesthesia Assessment: Anesthesia Plan Discussed Final Anesthetic Review Family History of Problems with Anesthesia: No History of Problems with Anesthesia: No NPO: Yes ASA Class: II Final Preanesthetic Review: No Changes in Pt Med Stat, Meds/Allgs Chart Revie wed, Consent Obtained/Reviewed and Anes Risks/Benef Reviewed Patient Risk: Low Procedure Risk: Intermediate Anesthetic Plan Anesthetic Plan: Agree w/ Assess. and Plan and TIVA Disposition: Standard PACU
--- NOTE | 2024-10-09 09:44 | MHC.SHP ---
Pre-Procedural Eval Section A - 24 Hr Update-Section A only Date of Service: 10/09/24 Section B - Complete if H&P > 30 days Chief Complaint: Other specified diseases of anus and rectum Relevant Family History (Specify if Yes): No Relevant Social History: None Present Medications: see Short Stay Collaborative assessment Medical History: Significant History (Single delivery by Gall bladder stones) History of Previous Operations: Relevant previous surgery/procedure and date(s) (Hx of cholecystectomy (~2009) History of bilateral tubal ligation) Allergies: Allergies Allergy/AdvReac Type Severity Reaction Status Date / Time aspirin [ASPIRIN] Allergy Unknown SWELLING, Verified 08/20/24 08:34 swells up Review of Systems Sugical H&P ROS: Negative: Constitution, Cardiovascular, Respiratory, Neurological, Psychiatric, Hem-Onc, Allergic/Immunologic, Gastrointestinal, Genitourinary, Musculoskeletal, Integumentary, Endocrine and Eyes/Ears/Nose/Throat Exam Surgical H&P Exam: Normal: HEENT, Normal: Heart, Normal: Lungs, Normal: Extremities, Normal: Abdomen, Normal: Skin and Normal: Neurological Plan Diagnosis/Plan: Unchanged I have reviewed the history and physical and performed a pertinent physical examination on my patient. No changes have occurred unless specified. Time Spent With Patient Time: Total time managing care of this patient today ____ minutes.
[2024-10-09 09:55] VITALS: BP 120/73; PULSE 104; RESP 14; TEMP 36.8; O2SAT 98; BMI 32.5
[2024-10-09] MEDS: Lactated Ringers 1,000 ML 100 ML IVCONT (10:10)
--- NOTE | 2024-10-09 11:01 | P.OPN-COLO_ITS ---
Colonoscopy Operative Note Operative Note Date of Service: 10/09/24 Narrative: Operative Information Procedure Description: EGD, Colonoscopy Indication: abn bowel habits Anesthesia: MAC FLEXIBLE TRANSORAL UPPER GASTROINTESTINAL ENDOSCOPY AND COLONOSCOPY PROCEDURE NOTE UPPER ENDOSCOPY Consent: Indications for the procedure and potential complications of bleeding, perforation, reaction to medications and missed diagnosis were discussed with the patient and informed consent was obtained. Instrument: Olympus GIF H 190 J mid size upper endoscope Monitoring: Vital signs and clinical assessment, continuous EKG monitoring, Pulse oximetry, Carbon Dioxide monitoring and blood pressure monitoring were done throughout the procedure. Procedure: The patient was placed in the left lateral decubitis position and pre-procedure medications were administered and a bite block was placed. The endoscope was inserted into the mouth and advanced under direct vision to the third part of duodenum. A careful inspection was made as the upper endoscope was withdrawn including a retroflexed examination of the proximal stomach; Findings and interventions are described below. Findings: Larynx:normal Esophagus: GE junction at 36 cm, diaphragm hiatus at 36 cm, normal mucosa, bx taken from distal esophagus Stomach: Normal mucosa. Biopsies were obtained. Grade 2 flap valve on retroflexed examination of the cardia. Few benign appearing fundic gland polyps seen ad pancreatic rest noted in antral area Duodenum: Normal bulb and descending duodenum, bx taken Intervention: Biopsies as noted above, COLONOSCOPY Instrument: Olympus variable stiffness pediatric scope 190L Colonoscopy Monitoring: Vital signs and clinical assessment, continuous EKG monitoring, Pulse oximetry, Carbon Dioxide monitoring and blood pressure monitoring were done throughout the procedure. Colon withdrawal time was 8 minutes. Procedure: The patient was placed in the left lateral decubitis position and pre-procedure medications were administered. After a digital rectal examination of the ano-rectum, the video colonoscope was inserted into the rectum and advanced through the colon to the cecum/TI. The colonoscope was slowly withdrawn in a retrograde panoramic fashion and the colon mucosa was carefully examined including a retroflexed view of the rectum. Findings and interventions are described below. Procedure Difficulty: easy Findings: Terminal Ileum-normal, bx taken mild melanosis coli random colon bx taken from right, left and rectum Cecum:normal Ascending Colon: normal Transverse Colon -normal Descending Colon:normal Sigmoid Colon: normal Rectum: Retroflexion with small internal hemorrhoids, grade I Anorectum - normal Colon preparation: [place] Bowel Preparation Scale Right colon; 2 Transverse colon: 2 Left colon; 2 (0 = Unprepared colon segment with mucosa not seen due to solid stool that cannot be cleared. 1 = Portion of mucosa of the colon segment seen, but other areas of the colon segment not well seen due to staining, residual stool and/or opaque liquid. 2 = Minor amount of residual staining, small fragments of stool and/or opaque liquid, but mucosa of colon segment seen well. 3 = Entire mucosa of colon segment seen well with no residual staining, small fragments of stool or opaque liquid) Impression and Post Procedure Diagnosis: Endoscopy Findings: fundic gland polyps Colonoscopy Findings: internal hemorrhoids melanosis coli Plan: Await Pathology results Repeat Colonoscopy in 10 years or earlier if clinically indicated High fiber diet leaflet avoid straining at stool, epsom salts and sitz bath, anusol supps or cream Above findings were reviewed with the patient and relevant handouts were provided if indicated.
[2024-10-09 11:24] VITALS: BP 92/49; PULSE 90; RESP 17; TEMP 36.4; O2SAT 100
[2024-10-09 11:39] VITALS: BP 99/54; PULSE 87; RESP 16; TEMP 36.4; O2SAT 99
== END 2024-10-09 12:08 | disposition home or self-care (01) ==
PROVIDERS: PCP Internal Medicine; Visit Provider Internal Medicine Gastroenterology
PROC: (CPT 45380; principal; 2024-10-09 11:20)
DX: K62.89 Other specified diseases of anus and rectum (principal); K62.5 Hemorrhage of anus and rectum; K64.0 First degree hemorrhoids; K64.4 Residual hemorrhoidal skin tags; K63.89 Other specified diseases of intestine; K59.00 Constipation, unspecified; K21.9 Gastro-esophageal reflux disease without esophagitis; K86.89 Other specified diseases of pancreas; K29.50 Unspecified chronic gastritis without bleeding; K31.7 Polyp of stomach and duodenum; K44.9 Diaphragmatic hernia without obstruction or gangrene; Z79.899 Other long term (current) drug therapy; Z88.6 Allergy status to analgesic agent; Z90.49 Acquired absence of other specified parts of digestive tract
CPT/HCPCS: 45380; 43239; 88305; 88313; 88342; J2003; J2704; J3010

== ENCOUNTER → 2024-10-09 08:38 | Outpatient (BNV) | payer MEDICAID, SELFPAY | PROVIDERS: PCP Internal Medicine; Visit Provider Internal Medicine Gastroenterology | DX: K63.89 Other specified diseases of intestine (principal); K64.0 First degree hemorrhoids; K31.7 Polyp of stomach and duodenum | CPT/HCPCS: 43239; 45380 ==

== ENCOUNTER 2024-11-07 09:50 | Outpatient (REF) | payer MEDICAID, SELFPAY ==
--- OUTSIDE RECORDS SUMMARY | 2024-11-07 10:53 | XMS_ITS | Clinical Summary ---
Author Organization [facility] Address [address] [place] [address] Care Team Providers Care Lithographic Stripper Name Role Phone Unavailable Primary Care Provider [...] 5 season) 2024 08/06/2020, 07/01/2020 Influenza Vaccine (Season Ended) 2025 Pneumococcal Vaccine Aged Out No long er eligible based on patient's age to complete this topic RSV Ped < 20 months Aged Out No longe r eligible based on patient's age to complete this topic Suzi Perry Personal/Family Self 1990 ([place]) [address] [place] [address] [place] [phone]
[2024-11-07 14:26] LABS: MANUAL DIFF FLAG NO
[2024-11-07 14:34] LABS: Basophils Absolute Auto 0.1 X10*3/uL (0.0-0.2); Basophils Percent Auto 0.8 % (0-2); Eosinophils Absolute Auto 0.4 X10*3/uL (0.0-0.4); Eosinophils Percent Auto 5.9 % (0-4); Hematocrit 40.4 % (37.0-47.0); Hemoglobin 13.4 g/dl (12.0-16.0); Imm Gran Abs Auto 0.04 X10*3/uL (0.00-0.03); Imm Gran Pct Auto 0.5 % (0.0-0.4); Lymphocytes Absolute Auto 2.6 X10*3/uL (1.2-4.9); Lymphocytes Percent Auto 34.2 % (20-40); Mean Corpuscular HGB Conc 33.2 g/dl (31.0-35.0); Mean Corpuscular Hemoglobin 29.3 pg (27.0-33.0); Mean Corpuscular Volume 88.4 fL (80.0-98.0); Mean Platelet Volume 11.2 fL (9.4-12.3); Monocytes Absolute Auto 0.6 X10*3/uL (0.1-1.2); Monocytes Percent Auto 8.5 % (2-11); Neutrophils Absolute Auto 3.8 x10*3/uL (2.0-8.3); Neutrophils Percent Auto 50.1 % (45-73); Platelet Count 346 X10*3/uL (160-400); Red Blood Count 4.57 X10*6/uL (4.20-5.50); Red Cell Distribution Width 12.2 % (11.0-16.0); White Blood Count 7.5 X10*3/uL (4.8-10.8)
[2024-11-07 15:15] LABS: Alanine Aminotransferase 25 U/L (0-31); Albumin Level 4.2 g/dL (3.5-5.0); Alkaline Phosphatase 60 U/L (39-117); Anion Gap 10 (12-20); Aspartate Amino Transferase 31 U/L (5-31); Bilirubin Total 0.6 mg/dL (0.0-1.0); Blood Urea Nitrogen 10 mg/dL (9-16); Calcium 9.1 mg/dL (8.4-10.2); Carbon Dioxide 27 mmol/L (22-29); Chloride 104 mmol/L (96-108); Cholesterol 160 mg/dL (<200); Estimated Glomerular Filt Rate > 60; Glucose Random 98 mg/dL (60-115); HDL Cholesterol 51 mg/dL (>40); Iron 71 mcg/dL (30-160); LDL Cholesterol Calculated 76 mg/dL (<100); Percent Iron Saturation 23 % (15-50); Potassium 4.3 mmol/L (3.3-5.1); Sodium 137 mmol/L (135-145); TSH reflex Free T4 1.78 uIU/mL (0.32-4.0); Total Iron Binding Capacity 306 mcg/dL (228-428); Total Protein 6.6 g/dL (6.5-8.0); Triglycerides 169 mg/dL (<150); Unsaturated Iron Binding 235 ug/dL
[2024-11-07 15:43] LABS: Estimated Average Glucose 100 mg/dL; Hemoglobin A1C 113.5285 umol/L; Hemoglobin A1c % 5.1 % (<6.0); Total Hemoglobin (HGBA1C) 3497.3863 umol/L
[2024-11-08 08:03] LABS: HIV AB/AG Nonreactive (Nonreactive); HIV Num 1 0.05 S/CO (0.00-0.99); ~Hepatitis C Antibody Nonreactive (Nonreactive)
== END 2024-11-07 09:51 | disposition home or self-care (01) ==
LOC: HO.CHCLDS 09:50
PROVIDERS: Visit Provider Internal Medicine
DX: R53.83 Other fatigue (principal)
CPT/HCPCS: 36415; 80053; 80061; 83036; 83540; 84443; 85025; 86803; 87389

== ENCOUNTER 2024-12-04 10:22 | Outpatient (AMB) | payer MEDICAID, SELFPAY ==
--- NOTE | 2024-12-04 10:29 | A.OFFVIS_ITS ---
Vital Signs 12/04/24 10:31 Height 4 ft 11 in Weight 160 lb BMI 32.3 BP 112/64 Blood Pressure Location Rt brachial Position Sitting Pulse 90 Pulse Source Pulse Oximeter Pulse Oximetry (%) 97 Oxygen Delivery Method Room Air Intake Visit Reasons: s/p colo egd Intake Note: ESTABLISHED PATIENT for mgmt of constipation, rectal bleeding. S/P Duo. Chief Complaint; Pt denies any new sx or changes since last visit. Pt does want to review results as well as difficulty with scheduling BA FL after initial r/s due to provider illness. Stone Rougher Required: No Accompanied by: Self / Same As Patient Allergies aspirin (ASPIRIN) Allergy (Unknown, Verified 12/04/24 10:29) SWELLING, swells up HPI HPI s/p colo egd: Details: LAST VISIT: Rectal pain Rectal bleed LLQ abdominal pain External hemorrhoid GERD (gastroesophageal reflux disease) Postprandial epigastric pain Plan Patient reports postprandial epigastric pain and acid reflux. Will send patient for upper endoscopy. Message sent to surgical schedulers to add procedure. Patient will continue taking omeprazole. Will send patient for upper GI series with barium swallow. Will check transglutaminase and lipase. Encouraged patient to avoid dietary triggers and late night snacking. GERD precautions and food elimination discussed with patient. List of food recommended as well as list of food to avoid given to patient. Patient will be sent for colonoscopy. Denies any issues with anesthesia in the past. No history of sleep apnea. Not on any anticoagulation medication. What to expect before during and after procedure discussed patient. Stressed the importance of good bowel prep and clear diet day before procedure. I will see patient after the procedure. She is agreeable to current plan of care and verbalizes understanding of instructions. She was given the opportunity to ask questions and all questions answered. ? Thank you for allowing me to participate in her care Orders Lipase Today R10.9 Transglutaminase IgA Today R10.9 FL upper GI w Ba Swallow Today K21.9 New bisacodyl (Dulcolax (bisacodyl)) take 4 tabs at noon the day before your colonoscopy 20 mg (4 x 5 mg) PO ONCE 1 day 4 tabs 0RF Z12.11 polyethylene glycol 3350 (Miralax) As directed by gastro[facility]ology department at [facility] 238 grams PO ONCE 238 grams 0RF Z12.11 UPPER ENDOSCOPY AND COLONOSCOPY Upper endoscopy Findings: Larynx:normal Esophagus: GE junction at 36 cm, diaphragm hiatus at 36 cm, normal mucosa, bx taken from distal esophagus Stomach: Normal mucosa. Biopsies were obtained. Grade 2 flap valve on retroflexed examination of the cardia. Few benign appearing fundic gland polyps seen ad pancreatic rest noted in antral area Duodenum: Normal bulb and descending duodenum, bx taken Intervention: Biopsies as noted above, COLONOSCOPY Findings: Terminal Ileum-normal, bx taken mild melanosis coli random colon bx taken from right, left and rectum Cecum:normal Ascending Colon: normal Transverse Colon -normal Descending Colon:normal Sigmoid Colon: normal Rectum: Retroflexion with small internal hemorrhoids, grade I Anorectum - normal Colon preparation: [place] Bowel Preparation Scale Right colon; 2 Transverse colon: 2 Left colon; 2 (0 = Unprepared colon segment with mucosa not seen due to solid stool that cannot be cleared. 1 = Portion of mucosa of the colon segment seen, but other areas of the colon segment not well seen due to staining, residual stool and/or opaque liquid. 2 = Minor amount of residual staining, small fragments of stool and/or opaque liquid, but mucosa of colon segment seen well. 3 = Entire mucosa of colon segment seen well with no residual staining, small fragments of stool or opaque liquid) Impression and Post Procedure Diagnosis: Endoscopy Findings: fundic gland polyps Colonoscopy Findings: internal hemorrhoids melanosis coli Plan: Await Pathology results Repeat Colonoscopy in 10 years or earlier if clinically indicated High fiber diet leaflet avoid straining at stool, epsom salts and sitz bath, anusol supps or cream PATHOLOGY RESULTS Addendum #1 Immunostain for H. pylori on B is negative. Additional level with AB/PAS on C is negative for intestinal metaplasia. Controls stain appropriately. Electronically Signed By: Sparkle Goodwin 10/15/24 4203 Diagnosis A. Duodenum, biopsy: Duodenal mucosa with preserved villi and no specific change. B. Stomach, biopsy: Gastric antral and body mucosa with minimal chronic inactive gastritis; negative for intestinal metaplasia and dysplasia. C. Esophagogastric junction, biopsy: Squamous mucosa with hyperplasia and focal intraepithelial eosinophils (up to 2 per high-power field) consistent with esophagitis, and columnar mucosa with mild chronic inflammation; no intestinal metaplasia seen on initial levels; negative for dysplasia. D. Esophagus, distal, biopsy: Squamous mucosa with rare intraepithelial eosinophils (up to 1 per high- power field), consistent with esophagitis; no columnar mucosa present. E. Terminal ileum, biopsy: Ileal mucosa with no specific change. F. Colon, right, biopsy: Colonic mucosa with pigmented lamina propria macrophages consistent with melanosis coli, otherwise no specific change. G. Colon, left, biopsy: Colonic mucosa with lymphoid aggregates, and pigmented lamina propria macrophages consistent with melanosis coli, otherwise no specific change. H. Colon, rectal biopsy: Colonic mucosa with few foamy lamina propria macrophages and few pigmented lamina propria macrophages compatible with melanosis coli, otherwise no specific change. Comment: (B): Immunostain for H. pylori pending; addendum to follow. (C): Additional level with AB/PAS stain pending; addendum to follow. TODAY'S VISIT: Patient is here today for follow-up and discuss upper endoscopy and colonoscopy results. Patient denies any ill effects from the prep, anesthesia or procedure itself. Patient had normal colonoscopy except for melanosis coli seen. Patient is taking Senokot and will stop taking senna. Patient reports that currently she is taking omeprazole and her symptoms of acid reflux are suppressed. Patient denies dyspepsia, dysphagia or odynophagia. Denies melena, hematochezia, unintentional weight loss or ribbon like stools. [facility] Medical History Carpal tunnel syndrome of right wrist Carpal tunnel syndrome of left wrist Single delivery by Gall bladder stones Surgical History Hx of cholecystectomy (~2009) History of bilateral tubal ligation Family History Father Heart disease Diabetes Mother Diabetes Social History Are you a primary care worker to a significant other at home: No Do you presently have visiting nurse or other home services: No Alcohol intake: never Patient Tobacco Use Status: Never used Tobacco Gender identity: Female Female Reproductive History Menstrual Age of Menarche: 11 Review of Systems Const Denies weight gain and Denies weight loss ENT Reports no additional complaints, Denies dysphagia and Denies odynophagia Card Reports no additional complaints Resp Reports no additional complaints GI Denies abdominal pain, Denies belching, Denies melena, Denies bloating, Denies hematochezia, Denies change in bowel habits, Reports constipation (Occasional), Denies dysphagia, Denies excessive flatus, Denies dyspepsia, Denies heartburn, Denies diarrhea, Denies loose stools, Denies nausea, Denies odynophagia and Denies vomiting Reports no additional complaints Musc Reports no additional complaints Neuro Reports no additional complaints Psych Reports no additional complaints Endo Reports no additional complaints Physical Exam Vital Signs: BMI result Body Mass Index 32.3 Const General: healthy appearing and no acute distress Nutritional Appearance: obese Orientation/consciousness: patient oriented x3 Resp Effort & Inspection: normal respiratory effort, able to speak in complete sentences, no tracheal deviation and symmetric chest movement Auscultation: clear to auscultation bilaterally Cardio Rate: regular rate GI Inspection: Yes normal to inspection, No distended and Yes obesity Palpation (GI): Soft to palpation, not firm, nontender and No hepatosplenomegaly present Auscultation: normal bowel sounds Rectal Exam - Female: External hemorrhoid(s) present and other (Possible internal hemorrhoid felt) General: Yes no CVA tenderness Back/Spine/Pelvis Back: no CVA tenderness Skin General skin exam: elasticity normal, turgor normal and dry skin Neuro General: patient oriented x3 Psych Appearance: grossly normal Mental Status: mental status grossly normal Assessment & Plan Assessment & Plan (1) Rectal Pain: Code(s): K62.89 - Other specified diseases of anus and rectum (2) Rectal Hemorrhage: Code(s): K62.5 - Hemorrhage of anus and rectum (3) Left lower quadrant abdominal pain: Code(s): R10.32 - Left lower quadrant pain (4) External hemorrhoids: Code(s): K64.4 - Residual hemorrhoidal skin tags (5) Gastroesophageal reflux disease: Code(s): K21.9 - Gastro-esophageal reflux disease without esophagitis Qualifiers: Esophagitis presence: esophagitis presence not specified Qualified Code(s): K21.9 - Gastro-esophageal reflux disease without esophagitis (6) Postprandial epigastric pain: Code(s): R10.13 - Epigastric pain Plan Patient will stop taking Senokot and will start taking Dulcolax. Increase fluid intake and activity to promote better bowel motility. Patient will continue taking omeprazole daily. Avoid dietary triggers and late night snacking. Staying upright for minimum 3 hours after meals discussed with patient. Patient will follow-up in 6 months, sooner on as needed basis. She is agreeable to this plan and verbalizes understanding of instructions. She was given the opportunity to ask questions and all questions answered. Thank you for allowing me to participate in her care Medications: New bisacodyl (Dulcolax (bisacodyl)) 10 mg (2 x 5 mg) PO BEDTIME 180 tabs 4RF Discontinued sennosides (Natural Senna Laxative) Discontinued Reason: Doctor's Order 8.6 mg PO BEDTIME 90 tabs 3RF constipation K59.00 - Constipation, unspecified Coding Level of Care Code Est Pt Level 4 (14303) Complex EM visit Add On G2211 Diagnoses Rectal Pain K62.89 Rectal Hemorrhage K62.5 Left lower quadrant abdominal pain R10.32 External hemorrhoids K64.4 Gastroesophageal reflux disease, unspecified whether esophagitis present K21.9 Esophagitis presence: esophagitis presence not specified Postprandial epigastric pain R10.13 Time Spent (min) 35 Comment 25 minutes spent with patient and additional 10 minutes spent reviewing her records
[2024-12-04 10:31] VITALS: BP 112/64; PULSE 90; O2SAT 97; BMI 32.3
--- OUTSIDE RECORDS SUMMARY | 2024-12-04 11:20 | XMS_ITS | Encounter Summary ---
Author Organization [facility] Address [address] [place] [address] [address] [place] [address] Care Team Providers Care Risk Management Consultant Name Role Phone Yuri Colon MD Primary Care Prov ider Encounter Details Date Type Department Care Team (Latest Contact Info) Description 11/08/2024 Results Follow-Up [facility] [address] [place] [address] Yuri Colon MD [address] [place] [address] CBC auto differential, Iron And Total Iron Binding Capacity, Comprehensive Metabolic Panel, Additional followed-up results: 5 Social History Tobacco Use Types Packs/Day Years Used Date Smoking Tobacco: Never Smokeless Tobacco: Never Alcohol Use Standard Drinks/Week Comments Never 0 (1 standard drink = 0.6 oz pur e alcohol) Depression Answer Date Recorded Patient Health Questionnaire-9 Score 0 11/07/2024 Patient Health Questionnaire-9 Score 0 11/07/2024 Last PHQ-9: Questionnaire Data Not on file 0 11/07/2024 Housing Stability Answer Date Recorded What is [...] Date Recorded Patient Health Questionnaire-2 Score 0 11/07/2024 Internet Access Answer Date Recorded Internet Access [...] Upcoming Encounters Date Type Department Care Team ([facility] st Contact Info) Description 12/27/2024 8:45 AM EDT Telemedicine [facility] [address] [place] [address] Yuri Colon MD [address] [place] [address] documented as of this encounter Visit Diagnoses Not on filedocumented in this encounter Additional Health Concerns Assessment Noted Time PHQ-9 Depression Total Score: 0 11/08/19 25 9:21 AM EDT documented as of this encounter Care Teams Risk Management Consultant Relationship Specialty Start Date End Date Yuri Colon MD [address] [place] [address] PCP - General Internal Medicine 03/05/19 documented as of this encounter
--- OUTSIDE RECORDS SUMMARY | 2024-12-04 11:20 | XMS_ITS | Clinical Summary ---
Author Organization [facility] Address [address] [place] [address] Care Team Providers Care Personnel Coordinator Name Role Phone Unavailable Primary Care Provider [...] season) 2024 08/06/2020, 07/01/2020 Influenza Vaccine (#1) 2025 Pneumococcal Vaccine Aged Out No long er eligible based on patient's age to complete this topic RSV Ped < 20 months Aged Out No longe r eligible based on patient's age to complete this topic Suzi Perry Personal/Family Self 1990 ([place]) [address] [place] [address] [place] [phone]
== END 2024-12-04 10:52 | disposition home or self-care (01) ==
LOC: HO.HGI 10:27
PROVIDERS: PCP Internal Medicine; Visit Provider Nurse Practitioner Family
DX: K62.89 Other specified diseases of anus and rectum (principal); K62.5 Hemorrhage of anus and rectum; R10.32 Left lower quadrant pain; K64.4 Residual hemorrhoidal skin tags; K21.9 Gastro-esophageal reflux disease without esophagitis; R10.13 Epigastric pain
CPT/HCPCS: 99214

== ENCOUNTER → 2024-12-04 10:22 | Outpatient (BNVA) | payer MEDICAID, SELFPAY | PROVIDERS: PCP Internal Medicine; Visit Provider Nurse Practitioner Family | DX: K62.5 Hemorrhage of anus and rectum (principal); K64.4 Residual hemorrhoidal skin tags; K21.9 Gastro-esophageal reflux disease without esophagitis; K62.89 Other specified diseases of anus and rectum; R10.32 Left lower quadrant pain; R10.13 Epigastric pain | CPT/HCPCS: 99212 ==